=== PATIENT | female | born 1955 | race Caucasian/White ===

== ENCOUNTER 2016-12-04 14:51 | Observation (INO) | payer OTHER ==
[~2016-12-04 14:51] MED LIST: ASPI81TA11 PO
--- NOTE | 2016-12-04 15:23 | PD ---
HPI Chief Complaint: Chest Pain Time Seen by Provider: 15:08 Travel History International Travel<30 days: No Contact w/Intl Traveler<30days: No Traveled to known affect area: No History of Present Illness HPI 61-year-old female complains of chest pain. Patient states that the chest pain started this morning. Patient states the pain is substernal aching pain with radiation to the right arm and the right upper back. Patient denies any coughing congestion fever chills. Patient states that the pain has been intermittent. Patient states that she has shortness of breath with the pain. Patient denies any nausea vomiting diaphoresis. Patient denies history of CAD. Patient has history of borderline diabetes, dyslipidemia. Patient denies history hypertension. Patient is a smoker. Patient has family history of heart disease. On a scale of 1-10 the pain is a 3. PFSH Past Medical History Asthma: No Heart Rhythm Problems: No Cancer: No Cardiovascular Problems: Yes High Cholesterol: No Chest Pain: Yes Congestive Heart Failure: No COPD: Yes Cerebrovascular Accident: No Endocrine: No Genitourinary: Yes Immune Disorder: No Kidney Stones: Yes Musculoskeletal: Yes Neurologic: Yes Psychiatric: No Reproductive: No Respiratory: Yes Migraines: No Renal Failure: No Seizures: No Sleep Apnea: No Social History Alcohol Use: No Tobacco Use: No Substance Use: No Allergies-Medications (Allergen,Severity, Reaction): Coded Allergies: No Known Allergies (Unverified , 08/07/15) Reported Meds & Prescriptions Reported Meds & Active Scripts Active Aspirin EC 81 mg (Aspirin) 81 Mg Tab 81 Mg PO DAILY Review of Systems General / Constitutional: No: Fever Eyes: No: Visual changes HENT: No: Headaches Cardiovascular: Positive: Chest Pain or Discomfort Respiratory: No: Shortness of Breath Gastrointestinal: No: Abdominal Pain Genitourinary: No: Dysuria Musculoskeletal: No: Pain Skin: No Rash Neurologic: No: Weakness Psychiatric: No: Depression Endocrine: No: Polydipsia Hematologic/Lymphatic: No: Easy Bruising Physical Exam Narrative GENERAL: Well-nourished, well-developed patient. SKIN: Focused skin assessment warm/dry. HEAD: Normocephalic. EYES: No scleral icterus. No injection or drainage. NECK: Supple, trachea midline. No JVD or lymphadenopathy. CARDIOVASCULAR: Regular rate and rhythm without murmurs, gallops, or rubs. RESPIRATORY: Breath sounds equal bilaterally. No accessory muscle use. GASTROINTESTINAL: Abdomen soft, non-tender, nondistended. MUSCULOSKELETAL: No cyanosis, or edema. BACK: Patient has mild to moderate tenderness on palpation right upper back around the scapular area, without obvious deformity. No CVA tenderness. Neurologic exam normal. MDM Medical Decision Making Medical Screen Exam Complete: Yes Emergency Medical Condition: Yes Differential Diagnosis Differential diagnosis including musculoskeletal, angina, MA, PE, pneumothorax. Narrative Course 61-year-old female with chest pain. Aspirin 325 mg by mouth given. Garry Erickson MD Dec 04, 2016 15:23
[2016-12-04] MEDS ORDERED: ASPIRIN 325 MG TAB PO ONE (15:30)
[2016-12-04 15:38] LABS: BASOPHIL # 0.1 TH/MM3 (0-0.2); BASOPHIL % 0.9 % (0.0-2.0); EOSINOPHIL # 0.3 TH/MM3 (0-0.4); HEMATOCRIT 43.7 % (35.0-46.0); HEMO FLAGS DIFF FINAL; LYMPH % 27.5 % (9.0-44.0); LYMPHOCYTE # 3.1 TH/MM3 (1.0-4.8); MEAN CELL VOLUME 85.7 FL (80.0-100.0); MEAN CORPUSCULAR HEMOGLOBIN 29.1 PG (27.0-34.0); MEAN CORPUSCULAR HGB CONC 33.9 % (32.0-36.0); MONO % 7.1 % (0.0-8.0); NEUT % 61.5 % (16.0-70.0); PLATELET COUNT 148 TH/MM3 (150-450); RED CELL DISTRIBUTION WIDTH 12.7 % (11.6-17.2); WHITE BLOOD COUNT 11.3 TH/MM3 (4.0-11.0)
[2016-12-04 16:00] LABS: CHLORIDE 106 MEQ/L (98-107); SODIUM (NA) 144 MEQ/L (136-145)
[2016-12-04 16:04] LABS: ANION GAP 7 MEQ/L (5-15); BICARBONATE 31.5 MEQ/L (21.0-32.0); BLOOD UREA NITROGEN 13 MG/DL (7-18)
[2016-12-04 16:07] LABS: ALT (GPT) 23 U/L (10-53); AST (GOT) 8 U/L (15-37); GLOMERULAR FILTRATION RATE 81 ML/MIN (>89)
[2016-12-04 16:09] LABS: TOTAL BILIRUBIN ADULT 0.6 MG/DL (0.2-1.0)
[2016-12-04 16:10] LABS: ALKALINE PHOSPHATASE 67 U/L (45-117); APTT (PATIENT) 25.6 SEC (24.3-30.1); PROTHROMBIN TIME - PATIENT 10.7 SEC (9.8-11.6)
[2016-12-04 16:13] LABS: CREATINE KINASE 54 U/L (26-192)
--- NOTE | 2016-12-04 16:28 | RADHPO ---
EXAM DATE/TIME: 12/04/2016 15:34 [facility] COMPARISON: CHEST SINGLE AP, August 07, 2015, 18:08. INDICATIONS : Chest pain for one day. MEDICAL HISTORY : Tobacco user. SURGICAL HISTORY : None. ENCOUNTER: Initial ACUITY: 1 day PAIN SCORE: 8/10 LOCATION: Bilateral chest FINDINGS: The cardiac silhouette is normal in transverse diameter. The lungs are free of acute parenchymal opac ity. No effusions are identified. There is subsegmental atelectasis in the left base. CONCLUSION: 1. Subsegmental atelectasis left base Wilian Dockery MD on December 04, 2016 at 16:26 Board Certified Radiologist. This report was verified electronically.
--- NOTE | 2016-12-04 16:47 | PD ---
Physical Exam Date Seen by Provider: Dec 04, 2016 Time Seen by Provider: 16:45 Narrative This 61-year-old female who presented with complaint of chest pain. She's been having chest pain since this morning. Intermittent pain that is substernal and goes to the right shoulder. It is not very bad right now. She says it was quite bad earlier today. She has no history of heart disease. She does smoke and has borderline diabetes. There is a family history of heart disease. Data Data Last Documented VS Vital Signs Date Time Temp Pulse Resp B/P Pulse Ox O2 Delivery O2 Flow Rate FiO2 12/04/16 14:53 57 14 96 Orders Complete Blood Count With Diff (12/04/16 15:17) Comprehensive Metabolic Panel (12/04/16 15:17) Creatine Kinase (Cpk) (12/04/16 15:17) Troponin I (12/04/16 15:17) Prothrombin Time / Inr (Pt) (12/04/16 15:17) Act Partial Throm Time (Ptt) (12/04/16 15:17) Chest, Single Ap (12/04/16 15:17) Iv Access Insert/Monitor (12/04/16 15:17) Ecg Monitoring (12/04/16 15:17) Oximetry (12/04/16 15:17) D-Dimer (12/04/16 15:17) Aspirin (Aspirin) (12/04/16 15:30) Electrocardiogram (12/04/16 14:53) Labs Laboratory Tests Test 12/04/16 14:58 White Blood Count 11.3 TH/MM3 Red Blood Count 5.10 MIL/MM3 Hemoglobin 14.8 GM/DL Hematocrit 43.7 % Mean Corpuscular Volume 85.7 FL Mean Corpuscular Hemoglobin 29.1 PG Mean Corpuscular Hemoglobin 33.9 % Concent Red Cell Distribution Width 12.7 % Platelet Count 148 TH/MM3 Mean Platelet Volume 11.8 FL Neutrophils (%) (Auto) 61.5 % Lymphocytes (%) (Auto) 27.5 % Monocytes (%) (Auto) 7.1 % Eosinophils (%) (Auto) 3.0 % Basophils (%) (Auto) 0.9 % Neutrophils # (Auto) 7.0 TH/MM3 Lymphocytes # (Auto) 3.1 TH/MM3 Monocytes # (Auto) 0.8 TH/MM3 Eosinophils # (Auto) 0.3 TH/MM3 Basophils # (Auto) 0.1 TH/MM3 CBC Comment DIFF FINAL Differential Comment Prothrombin Time 10.7 SEC Prothromb Time International 1.0 RATIO Ratio Activated Partial 25.6 SEC Thromboplast Time D-Dimer Quantitative (PE/DVT) 0.26 MG/L FEU Sodium Level 144 MEQ/L Potassium Level 4.0 MEQ/L Chloride Level 106 MEQ/L Carbon Dioxide Level 31.5 MEQ/L Anion Gap 7 MEQ/L Blood Urea Nitrogen 13 MG/DL Creatinine 0.73 MG/DL Estimat Glomerular Filtration 81 ML/MIN Rate Random Glucose 158 MG/DL Calcium Level 8.8 MG/DL Total Bilirubin 0.6 MG/DL Aspartate Amino Transf 8 U/L (AST/SGOT) Alanine Aminotransferase 23 U/L (ALT/SGPT) Alkaline Phosphatase 67 U/L Total Creatine Kinase 54 U/L Troponin I 0.03 NG/ML Total Protein 6.6 GM/DL Albumin 3.7 GM/DL MDM Medical Record Reviewed: Yes Supervised Visit with NENITA: Yes Differential Diagnosis Differential includes coronary artery disease, atypical chest pain, GERD Narrative Course EKG shows sinus rhythm. Chest x-ray some left subsegmental atelectasis. Troponin is normal. Patient will be admitted to chest pain center Ruben Shepherd MD Dec 04, 2016 16:47
[2016-12-04 17:05] VITALS: BP 148/74; PULSE 69; RESP 20; TEMP 98.3; O2SAT 99
[2016-12-04] MEDS ORDERED: ONDANSETRON HCL 4 MG/2 ML VIAL IV PRN (17:15)
[2016-12-04] MEDS ORDERED: ACETAMINOPHEN/HYDROcodone 325 MG/7.5 MG TAB PO PRN (17:15)
[2016-12-04] MEDS ORDERED: ACETAMINOPHEN 500 MG CPLT PO PRN (17:15)
[2016-12-04] MEDS ORDERED: NITROGLYCERIN 0.4 MG SL 25 TABS/BTL SL PRN (17:15)
[2016-12-04] MEDS ORDERED: diphenhydrAMINE HCL 50 MG/ML VIAL IV PUSH ONE (17:15)
[2016-12-04] MEDS ORDERED: MORPHINE SULFATE 4 MG/ML INJ IV PRN (17:15)
[2016-12-04 17:57] VITALS: BP 154/76; PULSE 56; RESP 20; O2SAT 97
[2016-12-04 20:00] VITALS: BP 135/82; PULSE 71; RESP 18; TEMP 98.4; O2SAT 93; O2SAT 94
[2016-12-04 20:06] VITALS: PULSE 66
[2016-12-04] MEDS: SODIUM CHLORIDE 0.9% FLUSH 10 ML FLUSH IV FLUSH SCH (20:39)
[2016-12-04] MEDS ORDERED: FAMOTIDINE 20 MG TAB PO SCH (21:00)
[2016-12-05] VITALS: BP 125/64; PULSE 57; RESP 16; TEMP 97; O2SAT 96
[2016-12-05 04:00] VITALS: BP 112/62; PULSE 59; RESP 18; TEMP 97.4; O2SAT 97
--- NOTE | 2016-12-05 07:58 | HHI.HP ---
[facility] Primary Care Physician Marylu Peng MD Admission Diagnosis CHEST PAIN Diagnoses: (1) Atypical chest pain Diagnosis: Principal (2) Tobacco use Diagnosis: Principal Chief Complaint: chest pain Travel History International Travel<30 Days: No Contact w/Intl Traveler <30 Da: No Traveled to Known Affected Are: No History of Present Illness 61-year-old female with history of borderline diabetes and hyperlipidemia presents with complaint of chest pain. Patient states that she started experience pain in the center of her chest radiating to the posterior right shoulder and arm at 11 AM yesterday. She states it lasted "a while". She is unable to describe the quality of pain. She rates the pain 7/10 at time of occurrence. She did not take anything at home to relieve her symptoms. She does state pain was worse with breathing and moving and she had a "little" SOB. She denies any diaphoresis, associated numbness or tingling. Denies any correlation with exertion. Denies any leg swelling. Denies any abdominal pain , nausea, vomiting. Patient states she didn't feel good and didn't feel good a few nights ago as well stating she had chills at that time. She denies having any runny nose, congestion, earache, sore throat, or cough. Denies any headache , blurred vision, or lightheadedness. Denies any associated dizziness although states she gets dizzy occasionally unrelated to this. Patient states in retrospect she had lifted a tree off of the table and put on the ground yesterday although denies feeling strain at that time. Review of Systems Constitutional: COMPLAINS OF: Chills, DENIES: Diaphoretic episodes, Fever, Dizziness Eyes: DENIES: Blurred vision Ears, nose, mouth, throat: DENIES: Ear Pain, Running Nose Respiratory: COMPLAINS OF: Shortness of breath, DENIES: Cough Cardiovascular: COMPLAINS OF: Chest pain, DENIES: Lower Extremity Edema Gastrointestinal: DENIES: Abdominal pain, Nausea, Vomiting Genitourinary: DENIES: Dysuria Integumentary: DENIES: Rash Neurologic: DENIES: Headache, Paresthesias MUSCULOSKELETAL: +R shoulder and arm pain Past Family Social History Past Medical History Borderline diabetes Hyperlipidemia Past Surgical History No surgeries Reported Medications Patient takes no medications at home. Allergies: Coded Allergies: No Known Allergies (Unverified , 08/07/15) Family History Father: MIs and strokes; first VT in his mid 50s. Mother: Emphysema No siblings with early heart disease. Social History Patient smokes one pack per day of cigarettes; started sometime after the age of 35. Only drinks alcohol "once in a while". Denies any history of illicit drug use. Physical Exam Vital Signs Vital Signs Date Time Temp Pulse Resp B/P Pulse Ox O2 Delivery O2 Flow Rate FiO2 12/05/16 04:00 97.4 59 18 112/62 97 12/05/16 00:00 97.0 57 16 125/64 96 12/04/16 20:06 66 12/04/16 20:00 98.4 71 18 135/82 94 12/04/16 20:00 93 21 12/04/16 17:57 56 20 154/76 97 12/04/16 17:05 98.3 69 20 148/74 99 12/04/16 14:53 57 14 96 Physical Exam GENERAL: This is a well-nourished, well-developed patient, in no apparent distress. SKIN: No rashes, ecchymoses or lesions. Warm and dry. HEAD: Atraumatic. Normocephalic. EYES: No scleral icterus. No injection or drainage. NECK: Trachea midline. CHEST: Significant reproducible tenderness over the right anterior chest. Mildly tender over sternum. CARDIOVASCULAR: Regular rate and rhythm without murmurs, gallops, or rubs. RESPIRATORY: Clear to auscultation. Breath sounds equal bilaterally. No wheezes , rales, or rhonchi. GASTROINTESTINAL: Normoactive bowel sounds. Abdomen soft, non-tender, nondistended. MUSCULOSKELETAL: Mildly tender over right posterior shoulder. No lower extremity edema or calf pain bilaterally. NEUROLOGICAL: Awake and alert. Motor grossly within normal limits. Normal speech. PSYCHIATRIC: Normal mood and affect. Normal insight and judgement. Laboratory Laboratory Tests Test 12/04/16 12/04/16 12/04/16 14:58 18:00 21:00 White Blood Count 11.3 Red Blood Count 5.10 Hemoglobin 14.8 Hematocrit 43.7 Mean Corpuscular Volume 85.7 Mean Corpuscular Hemoglobin 29.1 Mean Corpuscular Hemoglobin 33.9 Concent Red Cell Distribution Width 12.7 Platelet Count 148 Mean Platelet Volume 11.8 Neutrophils (%) (Auto) 61.5 Lymphocytes (%) (Auto) 27.5 Monocytes (%) (Auto) 7.1 Eosinophils (%) (Auto) 3.0 Basophils (%) (Auto) 0.9 Neutrophils # (Auto) 7.0 Lymphocytes # (Auto) 3.1 Monocytes # (Auto) 0.8 Eosinophils # (Auto) 0.3 Basophils # (Auto) 0.1 CBC Comment DIFF FINAL Differential Comment Prothrombin Time 10.7 Prothromb Time International 1.0 Ratio Activated Partial 25.6 Thromboplast Time D-Dimer Quantitative (PE/DVT) 0.26 Sodium Level 144 Potassium Level 4.0 Chloride Level 106 Carbon Dioxide Level 31.5 Anion Gap 7 Blood Urea Nitrogen 13 Creatinine 0.73 Estimat Glomerular Filtration 81 Rate Random Glucose 158 Calcium Level 8.8 Total Bilirubin 0.6 Aspartate Amino Transf 8 (AST/SGOT) Alanine Aminotransferase 23 (ALT/SGPT) Alkaline Phosphatase 67 Total Creatine Kinase 54 42 47 Troponin I 0.03 0.03 0.03 Total Protein 6.6 Albumin 3.7 Result Diagram: 12/04/16 1458 12/04/16 1458 Imaging Last Impressions Chest X-Ray 12/04/16 1517 Signed Impressions: Service Date/Time: Sunday, December 04, 2016 15:34 - CONCLUSION: 1. Subsegmental atelectasis left base Wilian Dockery MD Assessment and Plan Assessment and Plan 61-year-old female with: Atypical chest pain: Center/right chest with radiation to right shoulder. Patient does have significant reproducible tenderness over the right chest but she states this pain is different from the pain she was experiencing yesterday. CK 3 normal. Troponin 0.03 3. EKGs personally interpreted. EKG #1 and # 2 with sinus bradycardia and septal T wave inversion. There is minor sinus arrhythmia on the first EKG. EKG #3 with sinus rhythm rate 66 and T waves are now upright in V2. Chest x-ray personally interpreted with atelectasis at the left base. White blood cell count minimally elevated 11.3. -Patient received 325 mg aspirin in the ED. -Nitro/[place]/morphine prn pain -Telemetry -Although patient has reproducible tenderness on exam today which she states in hindsight could've been related to lifting a small tree yesterday, she states the pain is different from the pain she experienced yesterday. She additionally has non-specific septal changes on her EKGs. The patient does not regularly exercise so cannot do Nuc-tread; will order Lexiscan. Tobacco use: Counseled on cessation. Borderline DM and HLD: to be managed by PCP DVT prevention: SCDs. Myocardial perfusion scan scan negative for ischemia. EF 68%. Patient was noted to have heart rate in the 40s on telemetry for some time, but current heart rate on reexamination is 62bpm. EKGs show no evidence of block. Patient denies any palpitations, lightheadedness, or dizziness on this admission , but does state she gets dizzy sometimes at home. She is advised to address this with her PCP as it could be related to bradycardia. Discharge disposition: Home in stable condition. Diet: Heart healthy, diabetic. Activity: Regular. No heavy lifting Medications: Patient is currently on no medications at home. She is advised to discuss starting back on baby aspirin with her PCP (although she should have remained on this as it was started in 2014 for possible TIA). Follow-up: PCP 1 week Discussed Condition With ED physician, patient Attending Statement The exam, history, and the medical decision-making described in the above note were completed with the assistance of the mid-level provider. I reviewed and agree with the findings presented. I attest that I had a [id number] encounter with the patient on the same day, and personally performed and documented my assessment and findings in the medical record. Cindy Jimenez Dec 05, 2016 07:58 Regine Rodriguez MD Dec 05, 2016 17:05
[2016-12-05 08:00] VITALS: PULSE 51
[2016-12-05] MEDS: SODIUM CHLORIDE 0.9% FLUSH 10 ML FLUSH IV FLUSH SCH (08:12)
[2016-12-05] MEDS ORDERED: REGADENOSON INJ 0.4 MG/5 ML SYR IV ONE (08:52)
[2016-12-05] MEDS ORDERED: ASPIRIN 325 MG TAB PO SCH (09:00)
--- NOTE | 2016-12-05 09:18 | EKG ---
Date Performed: 12/04/2016 Time Performed: 20:48:44 PTAGE: 61 years EKG: Sinus rhythm . Poor R wave progression - probable normal variant Low QRS voltages in precordial leads Borderline E CG PREVIOUS TRACING : 12/04/2016 18.04 DOCTOR: Angel Flores Interpretating Date/Time 12/05/2016 09:15:57
[2016-12-05 09:28] VITALS: BP 117/59; PULSE 55; RESP 14; TEMP 96.3; O2SAT 94
--- NOTE | 2016-12-05 09:53 | EKG ---
Date Performed: 12/04/2016 Time Performed: 18:04:50 PTAGE: 61 years EKG: Sinus bradycardia Normal ECG except for rate PREVIOUS TRACING : 12/04/2016 14.53 DOCTOR: Angel Flores Interpretating Date/Time 12/05/2016 09:52:31
--- NOTE | 2016-12-05 10:01 | RADHPO ---
EXAM DATE/TIME: 12/05/2016 09:02 [facility] COMPARISON: MYOCARDIAL PERF PHARM SPECT, GATED W/EF, August 09, 2015, 9:49. INDICATIONS : Substernal chest pain with dyspnea. Angina. DOSE: 26.3 mCi Tc99m Myoview at stress. 8.6 mCi Tc99m Myoview at rest. 0.4 mg Lexiscan STRESS SYMPTOMS: Dspnea. EJECTION FRACTION: 68% MEDICAL HISTORY : Chronic obstructive pulmonary disease. Smoking history. SURGICAL HISTORY : None. ENCOUNTER: Initial ACUITY: 1 day PAIN SCALE: 4/10 LOCATION: Substernal chest TECHNIQUE: The patient underwent pharmacologic stress with infusion of prescribed dose. Continuous ECG tracing was monitored during stress. Gated SPECT imaging was performed after stress and conventional SPECT i maging was performed at rest. The examination was performed on a SPECT/CT scanner, both attenuation and non-corrected datasets were reviewed. FINDINGS: DISTRIBUTION: The maximum perfused segment at stress is in the anterior inferior wall. Moderate gut activity does o bscure the inferior wall. PERFUSION STUDY: The pattern of perfusion at stress is within normal limits. GATED STUDY: There is intact wall motion and thickening without hypokinetic or dyskinetic segments. CONCLUSION: Negative for stress-induced ischemia.. Normal wall motion RISK CATEGORY: Low (<1% Annual Mortality Rate) Greg Fernandez MD FACR on December 05, 2016 at 9:57 Board Certified Radiologist. This report was verified electronically.
--- NOTE | 2016-12-05 10:24 | EKG ---
Date Performed: 12/04/2016 Time Performed: 14:53:54 PTAGE: 61 years EKG: Sinus bradycardia with sinus arrhythmia Low QRS voltages in precordial leads Borderline ECG PREVIOUS TRACING : 08/08/2015 07.32 DOCTOR: Angel Flores Interpretating Date/Time 12/05/2016 10:23:36
--- NOTE | 2016-12-05 12:36 | HHI.DCPOC ---
Discharge Care Plan Diagnosis: (1) Atypical chest pain (2) Tobacco use Your Health Problems Are: Chest Pain Goals to Promote Your Health * To prevent worsening of your condition and complications * To maintain your health at the optimal level Directions to Meet Your Goals Take your medications as prescribed Follow your dietary instruction Follow activity as directed Keep your appointments as scheduled Take your immunizations and boosters as scheduled If your symptoms worsen call your PCP, if no PCP go to Urgent Care Center or Emergency Room Smoking is Dangerous to Your Health. Avoid second hand smoke Call the 24-hour hour crisis hotline for domestic abuse at Cindy Jiemnez Dec 05, 2016 12:36
--- NOTE | 2016-12-06 13:51 | TR ---
Date Performed: 12/05/2016 Time Performed: 09:07:58 DOCTOR: Wilian Bragg DRUG LIST: CLINICAL HISTORY: REASON FOR TEST: Chest pain REASON FOR ENDING: OBSERVATION: CONCLUSION: Lexiscan stress test was performed under standard four minute protocol. [place]ion[place] e was injected one minute prior to ending the test. No electrocardiographic abormalities were present to suggest ischemia. Nuclear imaging and interpretation are pending. COMMENTS:
== END 2016-12-05 13:35 | disposition home or self-care (01) ==
LOC: PHED 14:51 → PHEDA 17:29 → PH3A 18:35
PROVIDERS: ADMIT Family Medicine; ATTEND Family Medicine
DX: R07.89 Other chest pain (principal); E78.5 Hyperlipidemia, unspecified; F17.210 Nicotine dependence, cigarettes, uncomplicated; Z79.82 Long term (current) use of aspirin; Z82.49 Family history of ischemic heart disease and other diseases of the circulatory system
CPT/HCPCS: 71010; 78452; 80053; 82550; 84484; 85025; 85379; 85610; 85730; 93005; 93017; 96374; 99285; A9502; G0378; J1200; J2785